=== PATIENT | male | born 1970 | race Caucasian/White ===

== ENCOUNTER 2018-06-26 13:14 | Emergency (ER) | payer BC ==
[2018-06-26 13:22] VITALS: BP 147/104
--- NOTE | 2018-06-26 13:41 | EDPHY ---
H & P Time Seen by Provider: 06/26/18 13:27 HPI/ROS: CHIEF COMPLAINT: Left wrist pain post Foosh on ice HISTORY OF PRESENT ILLNESS: 47-year-old [id number] male lives in [place], [place], was hiking on a trail today, slipped on ice landing on his outstretched left hand. No proximal pain or injury. No head injury. No shoulder pain or injury. No back pain or injury. No elbow pain or injury. No paresthesia to the hand. Intact skin. PHYSICAL EXAM (Prior to examination, patient consented to physical exam, hands were washed and my usual and customary physical exam procedures followed) 1) GENERAL: Well-developed, well-nourished, alert and oriented. Appears to be in no acute distress. 2) HEAD: Normocephalic 3) HEENT: Pupils equal, round, reactive to light bilaterally. 4) LUNGS: Breathing comfortably. 5) MUSCULOSKELETAL: Tender to palpation anatomic snuffbox. Tender to palpation distal radius. No distal ulna or ulnar styloid pain. Intact skin. Soft compartments. Normal coloration. 6) SKIN: Intact 7) VASCULAR: pulses and cap refill present are brisk 8) NEUROLOGIC: Radial, ulnar, median nerve function intact with no deficits appreciated on exam DIFFERENTIAL DIAGNOSIS: in no particular order including but not limited to fracture, sprain, compartment syndrome Procedure: Splint A sugar-tong Ortho Glass splint which includes a thumb spica component was applied by ER glass technician. After application of the splint I returned and re- examined the patient. The splint was adequately immobilizing the joint and distal to the splint the patient's circulation and sensation were intact. Patient shows no signs of compartment syndrome. Was given orthopedic precautions. Smoking Status: Former smoker Constitutional: Initial Vital Signs Temperature (C) 36.8 C 06/26/18 13:20 Heart Rate 112 H 06/26/18 13:20 Respiratory Rate 18 06/26/18 13:20 Blood Pressure 147/104 H 06/26/18 13:20 O2 Sat (%) 93 06/26/18 13:20 O2 Delivery Mode Room Air Allergies/Adverse Reactions: No Known Allergies Allergy (Unverified 06/26/18 13:19) Home Medications: Medication Instructions Recorded Hydrocodone/APAP 5/325 [[place] 1 tab PO Q6 PRN #7 tab 06/26/18 5/325 (RX)] Paxil 06/26/18 MDM/Departure - MDM Imaging Results: Imaging Impressions Wrist X-Ray 06/26/18 13:26 Impression: Mildly impacted distal radial meta-epiphyseal fracture with intra- articular involvement. Images reviewed myself Medications Given: Discontinued Medications Oxycodone/Acetaminophen (Percocet 5/325) 1 tab PO EDNOW ONE Stop: 06/26/18 14:28 Last Admin: 06/26/18 14:30 Dose: 1 tab ED Course/Re-evaluation: Patient has been re-evaluated with serial examinations. We discussed limitations of x-ray. Discussed his x-ray showing nondisplaced distal radius fracture. Informed that non osseous injury not ruled out. Informed that occult injury such as occult scaphoid fracture not ruled out. The importance of keeping his splint r in place at all times until evaluated and cleared by orthopedics has been stressed on numerous instances. Given copies of his x- rays as he lives out of town but given also the name of a local orthopedic provider. Patient feels comfortable being discharged. All questions and concerns addressed by myself. Patient given my usual and customary discharge precautions and instructions regarding their clinical impression. Care of patient under supervision of secondary supervising physician Dr Welch . - Depart Disposition: Home, Routine, Self-Care Clinical Impression: Hiking on level or elevated terrain Fall due to slipping on ice or snow Qualifiers: Encounter type: initial encounter Qualified Code(s): W00.9XXA - Unspecified fall due to ice and snow, initial encounter Distal radius fracture, left Qualifiers: Encounter type: initial encounter Fracture type: closed Fracture morphology: other intra-articular Qualified Code(s): S52.572A - Other intraarticular fracture of lower end of left radius, initial encounter for closed fracture Condition: Good Instructions: Wrist Fracture in Adults (ED) Additional Instructions: Return to the ER immediately if you experience discoloration, have worsening pain, numbness, tingling, or any other symptoms that concern you. If you received x-rays in the emergency department today, be advised, that ligamentous , tendon, muscular, and other non-bony injury cannot be fully ruled out. Try to keep your affected extremity elevated above the level of your chest, and keep cold packs on the affected area, for the next 48 hours. Prescriptions: Hydrocodone/APAP 5/325 [[place] 5/325 (RX)] 1 tab PO Q6 PRN #7 tab PRN Reason: Pain, Severe Referrals: Omari Aburto MD [Medical Doctor] - 2-3 days, call for appt.
[2018-06-26] MEDS ORDERED: OXYCODONE/APAP 5/325 TAB PO ONE (14:27)
== END 2018-06-26 14:55 | disposition home or self-care (01) ==
PROC: 2W3FX1Z Immobilization of Left Hand using Splint (ICD-10-PCS; principal; 2018-06-26)
DX: S52.572A Other intraarticular fracture of lower end of left radius, initial encounter for closed fracture (principal); W00.0XXA Fall on same level due to ice and snow, initial encounter; Y92.89 Other specified places as the place of occurrence of the external cause; Y93.01 Activity, walking, marching and hiking; Y99.9 Unspecified external cause status; Z87.891 Personal history of nicotine dependence